=== PATIENT | male | born 1995 | race Caucasian/White ===

== ENCOUNTER 2022-10-10 13:49 | Outpatient (REF) | payer MEDICAID, SELFPAY ==
[2022-10-10 14:19] LABS: ALT 60 U/L (16-63); AST 30 U/L (15-37); Albumin 4.9 g/dL (3.4-5.0); Alkaline Phosphatase 110 U/L (46-116); Anion Gap 5.8 mmol/L (3-11); BUN 17 mg/dL (7-18); Bilirubin, Total 0.9 mg/dL (0.2-1.0); CO2 29.2 mmol/L (21.0-32.0); CREATININE 0.9 mg/dL (0.70-1.30); Calcium 9.6 mg/dL (8.5-10.1); Calculated LDL 116 mg/dL (<100); Chloride 104 mmol/L (98-107); Cholesterol 185 mg/dL (<200); Estimated GFR 119.31 (mL/min/1.73m2); Glucose 93 mg/dL (74-106); HDL Cholesterol 54 mg/dL (40-60); Potassium 4.5 mmol/L (3.5-5.1); Sodium 139 mmol/L (136-145); Total Protein 8.3 g/dL (6.4-8.2); Triglyceride 77 mg/dL (<150)
[2022-10-10 14:39] LABS: Vitamin D 25 Total 11.5 ng/mL (30-100)
== END 2022-10-10 13:50 | disposition home or self-care (01) ==
LOC: NCHCN 13:49
PROVIDERS: Visit Provider Family Medicine
DX: R53.83 Other fatigue (principal); E66.9 Obesity, unspecified; M25.561 Pain in right knee; F10.10 Alcohol abuse, uncomplicated
CPT/HCPCS: 80053; 80061; 82306